=== PATIENT | female | born 1990 | race Caucasian/White ===

== ENCOUNTER 2019-08-23 16:43 | Observation (INO) ==
[2019-08-23] MEDS ORDERED: BETAMETH SODIUM PHOS/ACETATE 30 MG/5 ML VIAL IM SCH (17:30)
[2019-08-23] MEDS ORDERED: TERBUTALINE 1 MG/1 ML VIAL SUBCUT ONE (19:26)
[2019-08-23] MEDS ORDERED: ONDANSETRON 4 MG/2 ML VIAL IV PRN (20:49)
[2019-08-23] MEDS ORDERED: MAGNESIUM SULF RIDER 4 GM in PREMIX 1 EACH IV ONE (20:50)
[2019-08-23] MEDS ORDERED: MAGNESIUM SULF DRIP 40 GM/1,000 ML ML IV SCH (21:00)
[2019-08-23 21:14] LABS: Basophils % 0.1 % (0.0-0.8); Hematocrit 34.5 VOL% (35.7-47.0); Hemoglobin 11.5 GM/DL (12.0-16.0); Immature Granulocytes % 0.9 %; Immature Granulocytes Absolute 0.09 #; Lymphocytes # 0.7 10*3/uL (1.4-4.0); Lymphocytes % 6.5 % (21.3-54.2); Mean Corpuscular HGB Conc 33.3 GM/DL (32-36); Mean Platelet Volume 11.7 FL (9.6-12.0); Monocytes % 1.1 % (1.7-12.7); Neutrophils % 91.4 % (38.7-73.9); Platelet Count 148 T/CUMM (130-400); Red Blood Count 3.79 MC/CUMM (3.8-5.5); Red Cell Distribution Width 11.9 % (9.3-17.3); White Blood Count 10.5 T/CUMM (4-12)
[2019-08-23] MEDS: LACTATED RINGERS 1,000 ML IV SCH (21:41)
[2019-08-23 21:48] LABS: Alanine Aminotransferase 17 U/L (13-56); Albumin 2.6 G/DL (3.4-5.0); Alkaline Phosphatase 128 U/L (45-117); Aspartate Amino Transferase 13 U/L (0-37); Bilirubin,Total < 0.39 MG/DL (0.2-1.0); Blood Urea Nitrogen 6 MG/DL (7-18); Calcium 8.4 MG/DL (8.5-10.1); Estimated Glom Filtration Rate 101 ML/MIN; Glucose 211 MG/DL (74-106); Lymphocytes 5 % (20-55); Osmolality,Calculated 273.1 MOS/KG (273-304); Platelet Estimate Adequate; Segmented Neutrophils 92 % (50-85); Total Cells Counted 100; Total Protein 6.7 G/DL (6.4-8.3)
[2019-08-24] MEDS: ACETAMINOPHEN 500 MG TABLET PO PRN ×2 (00:43→07:31)
[2019-08-24] MEDS: LACTATED RINGERS 1,000 ML IV SCH (04:22)
[2019-08-24 04:34] LABS: Apearance,Urine CLEAR (Clear); Bilirubin,Urine Negative (Negative); Blood, Urine Negative (Negative); Glucose,Urine (UA) >=500 mg/dL (Negative); Ketones,Urine 5 mg/dL (Negative); Nitrite,Urine Negative (Negative); Protein,Urine Negative; RBC,Urine 1 /HPF (0-4); Urine Color Yellow (Yellow); Urine Specific Gravity 1.015 (1.001-1.035); Urine Urobilinogen < 2.0 EU/DL (0.2-1.0); WBC,Urine 1 /HPF (0-6)
[2019-08-24] MEDS ORDERED: BETAMETH SODIUM PHOS/ACETATE 30 MG/5 ML VIAL IM ONE (05:05)
[2019-08-24] MEDS: NIFEdipine 10 MG CAPSULE PO SCH ×3 (07:21→18:10)
== END 2019-08-24 18:25 | disposition home or self-care (01) ==
LOC: N.LDOUT 16:43 → N.LD 16:48 → INTOOBSV 20:49 → N.LD 20:57
PROVIDERS: ADMIT Obstetrics & Gynecology; ATTEND Obstetrics & Gynecology

== ENCOUNTER 2019-09-13 22:33 | Inpatient (IN) ==
[2019-09-14 00:26] LABS: Apearance,Urine Slightly Hazy (Clear); Bacteria,Urine Many /HPF (Few); Bilirubin,Urine Negative (Negative); Blood, Urine Negative (Negative); Glucose,Urine (UA) Negative (Negative); Ketones,Urine Negative (Negative); Mucus,Urine Occasional /LPF (Occasional); Nitrite,Urine Negative (Negative); Protein,Urine Negative; RBC,Urine 3 /HPF (0-4); Squamous Epithelial Cell,Urine Occasional /HPF (0-10); Urine Color Yellow (Yellow); Urine Specific Gravity 1.008 (1.001-1.035); Urine Urobilinogen < 2.0 EU/DL (0.2-1.0); WBC,Urine 8 /HPF (0-6)
[2019-09-14] MEDS ORDERED: MEPERIDINE 50 MG/1 ML VIAL IM PRN (02:10)
[2019-09-14] MEDS ORDERED: ONDANSETRON 4 MG/2 ML VIAL IM PRN (02:10)
[2019-09-14] MEDS ORDERED: LACTATED RINGERS 1,000 ML IV ONE ×2 (04:19→06:57)
[2019-09-14] MEDS ORDERED: ONDANSETRON 4 MG/2 ML VIAL IV PRN ×2 (04:19→21:05)
[2019-09-14] MEDS ORDERED: LACTATED RINGERS 1,000 ML IV SCH ×2 (04:30→21:30)
[2019-09-14] MEDS ORDERED: AMPICILLIN INJ 2,000 MG in SODIUM CHLORIDE 0.9% 100 ML IV ONE (04:38)
[2019-09-14 04:54] LABS: Basophils % 0.1 % (0.0-0.8); Eosinophils % 0.3 % (0.00-10.9); Hematocrit 34.8 VOL% (35.7-47.0); Hemoglobin 11.7 GM/DL (12.0-16.0); Immature Granulocytes % 0.9 %; Immature Granulocytes Absolute 0.09 #; Lymphocytes % 19.9 % (21.3-54.2); Mean Corpuscular HGB Conc 33.6 GM/DL (32-36); Mean Corpuscular Volume 89.2 FL (87-102); Mean Platelet Volume 12.5 FL (9.6-12.0); Monocytes % 5.7 % (1.7-12.7); Neutrophils % 73.1 % (38.7-73.9); Platelet Count 143 T/CUMM (130-400); Red Cell Distribution Width 12.2 % (9.3-17.3); White Blood Count 9.9 T/CUMM (4-12)
[2019-09-14] MEDS ORDERED: MEPERIDINE 50 MG/1 ML VIAL IV ONE (04:55)
[2019-09-14 05:35] LABS: Alanine Aminotransferase 39 U/L (13-56); Albumin 2.6 G/DL (3.4-5.0); Alkaline Phosphatase 208 U/L (45-117); Aspartate Amino Transferase 28 U/L (0-37); Bilirubin,Total < 0.39 MG/DL (0.2-1.0); Blood Urea Nitrogen 7 MG/DL (7-18); Calcium 8.5 MG/DL (8.5-10.1); Estimated Glom Filtration Rate 120 ML/MIN; Glucose 74 MG/DL (74-106); Osmolality,Calculated 262.4 MOS/KG (273-304); Total Protein 6.7 G/DL (6.4-8.3)
[2019-09-14] MEDS: OXYTOCIN/LR 20 UNIT/1,000 ML BAG IV SCH ×2 (06:15→20:58)
[2019-09-14] MEDS ORDERED: FAMOTIDINE 20 MG/2 ML VIAL IV ONE (06:57)
[2019-09-14] MEDS ORDERED: ePHEDrine 50 MG/ML AMP IV PRN (06:57)
[2019-09-14] MEDS ORDERED: CITRIC ACID/SODIUM CITRATE 30 ML UDCUP PO ONE (06:57)
[2019-09-14 07:14] LABS: Lymphocytes 18 % (20-55); Total Cells Counted 100
[2019-09-14 07:37] LABS: Band Neutrophils 1 % (0-10); Segmented Neutrophils 75 % (50-85)
[2019-09-14 07:38] LABS: Platelet Estimate Adequate
[2019-09-14] MEDS: fentaNYL 2 MCG/ROPIV 0.2% EPID 100 ML EPIDURAL SCH ×2 (07:40→16:16)
[2019-09-14 09:01] LABS: Apearance,Urine CLEAR (Clear); Bilirubin,Urine Negative (Negative); Blood, Urine Negative (Negative); Glucose,Urine (UA) Negative (Negative); Ketones,Urine Negative (Negative); Mucus,Urine Occasional /LPF (Occasional); Nitrite,Urine Negative (Negative); Protein,Urine Negative; RBC,Urine <1 /HPF (0-4); Urine Color Yellow (Yellow); Urine Specific Gravity 1.012 (1.001-1.035); Urine Urobilinogen < 2.0 EU/DL (0.2-1.0); WBC,Urine 1 /HPF (0-6)
[2019-09-14] MEDS: AMPICILLIN INJ 1,000 MG in SODIUM CHLORIDE 0.9% 100 ML IV SCH ×3 (09:24→17:02)
[2019-09-14] MEDS ORDERED: diphenhydrAMINE 50 MG/1 ML VIAL IV ONE (12:45)
[2019-09-14] MEDS ORDERED: diphenhydrAMINE 50 MG/1 ML VIAL ONE (12:48)
[2019-09-14] MEDS ORDERED: METHYLERGONOVINE 0.2 MG/1 ML AMP ONE (17:56)
[2019-09-14] MEDS ORDERED: miSOPROStoL 200 MCG TABLET ONE (17:56)
[2019-09-14] MEDS ORDERED: LIDOCAINE 1% 50 ML VIAL ONE (17:56)
[2019-09-14 19:05] LABS: Cord Venous Blood HCO3 18.9 MMOL/L; Cord Venous Blood PO2 23.4 MMHG
[2019-09-14] MEDS ORDERED: BISACODYL 10 MG SUPP RECTAL PRN (21:05)
[2019-09-14] MEDS ORDERED: ACETAMINOPHEN 325 MG TABLET PO PRN (21:05)
[2019-09-14] MEDS: IBUPROFEN 800 MG TABLET PO PRN (21:35)
[2019-09-15 05:43] LABS: Basophils % 0.2 % (0.0-0.8); Hematocrit 32.7 VOL% (35.7-47.0); Hemoglobin 10.9 GM/DL (12.0-16.0); Immature Granulocytes % 1.3 %; Immature Granulocytes Absolute 0.25 #; Lymphocytes # 1.5 10*3/uL (1.4-4.0); Lymphocytes % 8.1 % (21.3-54.2); Mean Corpuscular HGB Conc 33.3 GM/DL (32-36); Mean Corpuscular Volume 90.6 FL (87-102); Mean Platelet Volume 12.9 FL (9.6-12.0); Monocytes % 3.9 % (1.7-12.7); Neutrophils % 86.5 % (38.7-73.9); Platelet Count 134 T/CUMM (130-400); Red Blood Count 3.61 MC/CUMM (3.8-5.5); Red Cell Distribution Width 12.1 % (9.3-17.3); White Blood Count 18.9 T/CUMM (4-12)
[2019-09-15] MEDS: IBUPROFEN 800 MG TABLET PO PRN ×2 (06:23→14:37)
[2019-09-15] MEDS ORDERED: MAGNESIUM HYDROXIDE SUSP 30 ML UDCUP PO PRN (09:00)
[2019-09-15] MEDS: DOCUSATE SODIUM 100 MG CAPSULE PO SCH ×2 (09:12→19:50)
[2019-09-16] MEDS: IBUPROFEN 800 MG TABLET PO PRN ×2 (01:09→08:30)
[2019-09-16] MEDS: DOCUSATE SODIUM 100 MG CAPSULE PO SCH ×2 (08:30→11:13)
[2019-09-16] MEDS ORDERED: DIPH/TET/ACEL PERT BOOSTER VACCINE 0.5 ML VIAL IM ONE (10:45)
[2019-09-16 11:26] VITALS: BP 112/68
== END 2019-09-16 13:15 | disposition home or self-care (01) | DRG 560 ==
LOC: N.LDOUT 22:33 → N.LD 22:36 → N.OB 09-14 21:29
PROVIDERS: ADMIT Obstetrics & Gynecology; ATTEND Obstetrics & Gynecology